=== PATIENT | female | born 1995 | race Caucasian/White ===

== ENCOUNTER 2023-11-18 21:56 | Inpatient (IN) | payer BC ==
[2023-11-18] MEDS ORDERED: Misoprostol 25 MCG (1/4 of 100 MCG) Tab VAG PRN ×2 (22:49)
[2023-11-18] MEDS ORDERED: Terbutaline 1 MG/ML SDV SUBCUT PRN (22:49)
[2023-11-18] MEDS ORDERED: Oxytocin/0.9 % Sodium Chloride 30 UNIT/500 ML BAG IV SCH (23:00)
[2023-11-18 23:09] LABS: BASOPHILS ABSOLUTE AUTO 0.02 K/uL (0.00-0.20); BASOPHILS PERCENT AUTO 0.2 % (0.0-1.0); EOSINOPHILS ABSOLUTE AUTO 0.06 K/uL (0.00-0.45); EOSINOPHILS PERCENT AUTO 0.6 % (0.0-6.0); HEMATOCRIT 37.5 % (37.0-47.0); HEMOGLOBIN 12.5 g/dL (12.0-16.0); IMMATURE GRAN ABSOLUTE AUTO 0.03 K/uL (0.00-0.05); IMMATURE GRAN PERCENT AUTO 0.3 % (0.0-0.4); LYMPHOCYTES ABSOLUTE AUTO 2.32 K/uL (1.00-4.80); LYMPHOCYTES PERCENT AUTO 25.1 % (24.0-44.0); MEAN CORPUSCULAR HEMOGLOBIN 27.7 pg (28.0-32.0); MEAN CORPUSCULAR HGB CONC 33.3 g/dL (32.0-36.0); MEAN PLATELET VOLUME 11.9 fL (9.4-12.3); MONOCYTES ABSOLUTE AUTO 0.39 K/uL (0.00-0.80); MONOCYTES PERCENT AUTO 4.2 % (0.0-8.0); NEUTROPHILS ABSOLUTE AUTO 6.44 K/uL (1.80-7.70); NEUTROPHILS PERCENT AUTO 69.6 % (41.0-71.0); PLATELET COUNT,PLT 208 K/uL (150-400); RED BLOOD CELL COUNT 4.52 M/uL (4.10-5.30); WHITE BLOOD CELL COUNT,WBC 9.26 K/uL (3.9-11.3)
[2023-11-19] MEDS: Lactated Ringers 1,000 ML IV SCH (00:10)
[2023-11-19] MEDS: Ropivacaine HCl/PF 200 ML ONE (02:44)
[2023-11-19] MEDS ORDERED: dexmedeTOMIDine HCl 200 MCG/2 ML SDV ONE (02:50)
[2023-11-19] MEDS ORDERED: Phenylephrine HCl In 0.9% NaCl 1 MG/10 ML Syringe ONE (02:50)
[2023-11-19] MEDS ORDERED: Ropivacaine HCl/PF 400 MG in Premix Bag 1 BAG EPIDUR SCH (03:00)
[2023-11-19] MEDS ORDERED: ePHEDrine 50 MG/ML SDV IVPUSH PRN ×2 (03:00)
[2023-11-19] MEDS ORDERED: Phenylephrine HCl In 0.9% NaCl 1 MG/10 ML Syringe IVPUSH PRN (03:00)
[2023-11-19] MEDS ORDERED: dexmedeTOMIDine HCl 200 MCG/2 ML SDV EPIDUR SCH (03:00)
[2023-11-19] MEDS ORDERED: Methylergonovine 0.2 MG Tab PO PRN (05:37)
[2023-11-19] MEDS ORDERED: Famotidine 20 MG Tab PO PRN (05:37)
[2023-11-19] MEDS ORDERED: Simethicone 80 MG Tab.Chew PO PRN (05:37)
[2023-11-19] MEDS ORDERED: Carboprost Tromethamine 250 MCG/1 mL Vial IM PRN (05:37)
[2023-11-19] MEDS ORDERED: Benzocaine/Menthol 20%-0.5% Spray 78 GM Cannister TOP PRN (05:37)
[2023-11-19] MEDS ORDERED: Tranexamic Acid IN NACL,ISO-OS 1,000 MG in Premix Bag 1 BAG IV PRN (05:37)
[2023-11-19] MEDS ORDERED: Bisacodyl 10 MG Supp RECTAL PRN (05:37)
[2023-11-19] MEDS ORDERED: Lanolin 100% Cream 7 GM Tube TOP PRN (05:37)
[2023-11-19] MEDS ORDERED: Aluminum Hydroxide/Magnesium Hydroxide/Simethicone XS Susp 30 ML Cup PO PRN (05:37)
[2023-11-19] MEDS ORDERED: Docusate Sodium 100 MG Cap PO PRN (05:37)
[2023-11-19] MEDS ORDERED: Oxytocin 10 Units/1 ML SDV IM PRN (05:37)
[2023-11-19] MEDS ORDERED: Misoprostol 200 MCG Tab PO PRN (05:37)
[2023-11-19] MEDS ORDERED: Witch Hazel Medicated Pads 40/Jar TOP PRN (05:37)
[2023-11-19] MEDS ORDERED: Sennosides 8.6 MG Tab PO PRN (05:37)
[2023-11-19 05:45] LABS: PH,UMBILICAL ARTERIAL 7.243 (7.18-7.38)
[2023-11-19 05:46] LABS: PH,UMBILICAL VENOUS 7.244 (7.25-7.45)
[2023-11-19] MEDS: Ibuprofen 800 MG Tab PO PRN (14:51)
[2023-11-19] MEDS: Acetaminophen 500 MG Tab PO PRN (20:12)
[2023-11-20 07:01] LABS: BASOPHILS ABSOLUTE AUTO 0.04 K/uL (0.00-0.20); BASOPHILS PERCENT AUTO 0.6 % (0.0-1.0); EOSINOPHILS ABSOLUTE AUTO 0.16 K/uL (0.00-0.45); EOSINOPHILS PERCENT AUTO 2.2 % (0.0-6.0); HEMATOCRIT 32.7 % (37.0-47.0); HEMOGLOBIN 10.7 g/dL (12.0-16.0); IMMATURE GRAN ABSOLUTE AUTO 0.03 K/uL (0.00-0.05); IMMATURE GRAN PERCENT AUTO 0.4 % (0.0-0.4); LYMPHOCYTES ABSOLUTE AUTO 3.38 K/uL (1.00-4.80); LYMPHOCYTES PERCENT AUTO 46.8 % (24.0-44.0); MEAN CORPUSCULAR HEMOGLOBIN 28.4 pg (28.0-32.0); MEAN CORPUSCULAR HGB CONC 32.7 g/dL (32.0-36.0); MEAN CORPUSCULAR VOLUME 86.7 fL (83.0-99.0); MEAN PLATELET VOLUME 11.7 fL (9.4-12.3); MONOCYTES ABSOLUTE AUTO 0.48 K/uL (0.00-0.80); MONOCYTES PERCENT AUTO 6.6 % (0.0-8.0); NEUTROPHILS ABSOLUTE AUTO 3.13 K/uL (1.80-7.70); NEUTROPHILS PERCENT AUTO 43.4 % (41.0-71.0); PLATELET COUNT,PLT 162 K/uL (150-400); RED BLOOD CELL COUNT 3.77 M/uL (4.10-5.30); WHITE BLOOD CELL COUNT,WBC 7.22 K/uL (3.9-11.3)
== END 2023-11-20 13:46 | disposition home or self-care (01) | DRG 560 ==
LOC: MW.OBCHECK 21:56 → MW.OB 21:56 → MW.OBCHECK 22:47 → MW.OB 22:48 → OBSVTOIN 11-19 05:37 → MW.OB 11-19 08:58
PROVIDERS: ADMIT Obstetrics & Gynecology; ATTEND Obstetrics & Gynecology
PROC: 10E0XZZ Delivery of Products of Conception, External Approach (ICD-10-PCS; principal; 2023-11-19)
PROC: 3E033VJ Introduction of Other Hormone into Peripheral Vein, Percutaneous Approach (ICD-10-PCS; 2023-11-19)
DX: O99.214 Obesity complicating childbirth (principal); Z37.0 Single live birth; Z3A.39 39 weeks gestation of pregnancy
CPT/HCPCS: 36415; 59025; 59409; 82803; 85025; 86592; 86850; 86900; 86901; A9270-GY; J2371; J2795; J3490; J7120